=== PATIENT | male | born 1980 | race Caucasian/White ===

== ENCOUNTER 2025-01-11 17:42 | Emergency (ER) | payer MEDICAID, SELFPAY ==
[2025-01-11 18:04] VITALS: BP 110/78; PULSE 114; RESP 17; TEMP 36.8; O2SAT 97
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
[2025-01-11] MEDS: TETRACAINE PF OP SOL 0.5% 4 ML DRPETTE 1 DROP RIGHT EYE (18:52)
[2025-01-11] MEDS: FLUORESCEIN SOD 1 MG STRP RIGHT EYE (18:53)
[2025-01-11] MEDS: Erythromycin Op Oint 0.5% 1 GM PACKET RIGHT EYE (19:41)
== END 2025-01-11 19:53 | disposition home or self-care (01) ==
PROVIDERS: Emergency Provider Emergency Medicine; PCP Family Medicine
DX: T20.20XA Burn of second degree of head, face, and neck, unspecified site, initial encounter (principal); T31.0 Burns involving less than 10% of body surface; X12.XXXA Contact with other hot fluids, initial encounter
CPT/HCPCS: 99283; A9270